=== PATIENT | female | born 1985 | race Two or more races ===

== ENCOUNTER 2021-09-19 10:16 | Emergency (ER) | payer OTHER ==
[~2021-09-19] VITALS: Ht 157.5 cm; Wt 70.3 kg
[2021-09-19 11:16] LABS: Basophils # (auto) 0.1 10 ^3/uL (0-0.2); Basophils % (auto) 0.8 % (0.0-2.0); Eosinophils # (auto) 0.2 10 ^3/uL (0-0.8); Eosinophils % (auto) 3.4 % (0.0-7.0); Hematocrit 41.3 % (36.0-46.0); Hemoglobin 14.6 g/dL (12.2-16.2); Lymphocytes # (auto) 1.8 10 ^3/uL (0.4-5.4); Lymphocytes % (auto) 28.8 % (10.0-50.0); Mean Corpuscular Hemoglobin 29.8 pg (28.0-32.0); Mean Corpuscular Hgb Conc. 35.2 g/dL (32.0-36.0); Mean Corpuscular Volume 84.4 fL (80.0-100.0); Monocytes # (auto) 0.6 10 ^3/uL (0-1.3); Neutrophils # (auto) 3.6 10 ^3/uL (1.6-8.6); Nucleated Red Blood Cells % 0.1 %; Red Cell Distribution Width 13.4 % (11.8-14.3); White Blood Cell 6.2 10^3/uL (4.4-10.8)
[2021-09-19 11:38] LABS: Albumin 3.7 g/dL (3.4-5.0); Calcium 8.4 mg/dL (8.5-10.1); Potassium 3.3 mmol/L (3.5-5.1)
[2021-09-19 11:44] LABS: BUN/Creatinine Ratio 15.2; Bilirubin, Total 0.6 mg/dL (0.2-1.0); Total Protein 8.1 g/dL (6.4-8.2)
[2021-09-19] MEDS ORDERED: cloNIDine HCL 0.1 MG TAB PO ONE ×2 (12:30→13:15)
[2021-09-19] MEDS ORDERED: POTASSIUM EFFERVESENT TAB 25 MEQ PO ONE (12:30)
[2021-09-19] MEDS ORDERED: LORazepam 0.5 MG TAB PO ONE (12:30)
[2021-09-19] MEDS ORDERED: cloNIDine HCL 0.1 MG TAB ONE (12:32)
[2021-09-19 12:35] VITALS: BP 158/118
[2021-09-19 13:13] LABS: Urine Bacteria NONE SEEN /hpf (None Seen); Urine Blood TRACE /uL (Negative); Urine Mucus FEW (None Seen); Urine Specific Gravity 1.028 (1.001-1.035); Urine WBC 4 /hpf (0 - 5)
== END 2021-09-19 14:36 | disposition home or self-care (01) ==
LOC: ER 10:16
DX: R07.89 Other chest pain (principal); I16.0 Hypertensive urgency; E87.6 Hypokalemia
CPT/HCPCS: 36415; 71045; 80053; 81001; 83735; 84484; 85025; 93005